=== PATIENT | female | born 1970 ===

== ENCOUNTER 2025-04-03 22:13 | Emergency (ER) | payer OTHER, SELFPAY ==
--- NOTE | ~2025-04-03 | CT_ITS ---
CLINICAL HISTORY: R flank pain, fever CT abdomen and pelvis without contrast Comparison: None provided Findings: There is mild dependent atelectasis. The liver, gallbladder, pancreas, spleen, adrenal glands, and kidneys are unremarkable. There is no urolithiasis or hydronephrosis. The appendix is normal. There is a moderate amount of stool throughout the colon. The remainder of the gastrointestinal tract is unremarkable. There are no enlarged lymph nodes. The aorta is normal in diameter. Uterus and adnexa are grossly unremarkable. The bladder is unremarkable. There is no fracture or suspicious lytic or sclerotic lesion. There is mild L5-S1 degenerative disc disease. IMPRESSION: No acute abnormality in the abdomen or pelvis. This document has been electronically signed by: Abhi Nieves MD on 04/04/2025 02:12:03
[2025-04-03 22:15] VITALS: BP 135/84; PULSE 116; RESP 15; TEMP 37.7; O2SAT 100; BMI 23.2
[2025-04-03 22:28] LABS: MANUAL DIFF FLAG NO
[2025-04-03 22:29] LABS: Hematocrit 35.4 % (37.0-47.0); Hemoglobin 12.0 g/dl (12.0-16.0); Imm Gran Abs Auto 0.05 X10*3/uL (0.00-0.03); Imm Gran Pct Auto 0.4 % (0.0-0.4); Lymphocytes Absolute Auto 1.2 X10*3/uL (1.2-4.9); Mean Corpuscular HGB Conc 33.9 g/dl (31.0-35.0); Mean Corpuscular Hemoglobin 27.8 pg (27.0-33.0); Mean Corpuscular Volume 82.1 fL (80.0-98.0); NRBC Abs Auto 0.000 X10*3/uL (0.0-0.012); NRBC Pct Auto 0.0 /100WBC (0.0-0.2); Platelet Count 269 X10*3/uL (160-400); Red Blood Count 4.31 X10*6/uL (4.20-5.50); White Blood Count 13.5 X10*3/uL (4.8-10.8)
[2025-04-03 22:39] LABS: Appearance Urine Clear; Glucose Urine UA Negative (Negative); PH 7.0 (5.0-9.0); Specific Gravity - Urine <= 1.005 (1.005-1.025); UMIC TRIGGER UACC YES
[2025-04-03 22:44] LABS: Alanine Aminotransferase 30 U/L (0-31); Albumin Level 4.5 g/dL (3.5-5.0); Alkaline Phosphatase 113 U/L (39-117); Anion Gap 11 (12-20); Aspartate Amino Transferase 36 U/L (5-31); Blood Urea Nitrogen 12 mg/dL (9-16); Calcium 9.2 mg/dL (8.4-10.2); Carbon Dioxide 23 mmol/L (22-29); Chloride 107 mmol/L (96-108); Creatinine Clr Calc Pharmacy 77.4; Estimated Glomerular Filt Rate > 60; Lipase 33 U/L (8-78); Potassium 3.9 mmol/L (3.3-5.1); Sodium 137 mmol/L (135-145); Total Protein 7.7 g/dL (6.5-8.0)
[2025-04-03 22:51] LABS: UACC Culture Trigger YES
--- NOTE | 2025-04-04 00:42 | ED_ITS ---
HPI - Female Genitourinary General Chief complaint: Urogenital-Female Stated complaint: Fever Time Seen by Provider: 04/04/25 00:42 Source: patient Mode of arrival: ambulatory Limitations: no limitations History of Present Illness ED Provider: Dr. Anna Paniagua HPI Narrative: 54-year-old female history of frequent urinary tract infections presenting with fever, suprapubic abdominal pain and dysuria ongoing for the last 3 days or so. Patient admits she developed some dysuria and suprapubic pain days ago. Tried to call her urologist but did not hear back. Called her primary care doctor who started her on Macrobid yesterday and Pyridium for pain. Admits the Pyridium has helped her pain however, today she developed a fever and pain radiating into her right flank. No hematuria. No bowel changes. Describes nausea without vomiting. Denies upper abdominal pain. No vaginal bleeding or discharge. No known sick contacts, cough or cold-type symptoms, chest pain or difficulty breathing. Admits that she has been on multiple different antibiotics for her UTIs. She has had 3 doses of Macrobid so far. Related Data Previous Rx's ?Medication ?Instructions ?Recorded cefuroxime axetil 500 mg tablet 500 mg PO Q12H 7 days #14 tabs 04/04/25 ondansetron HCl 4 mg tablet 4 mg PO Q8H #10 tabs 04/04 Allergies Allergy/AdvReac Type Severity Reaction Status Date / Time No Known Allergies Allergy Verified 04/03/25 22:18 Review of Systems 2 Review of Systems: Yes all other systems are reviewed and are negative (As per HPI) COUNTS INCLUDE 234 BEDS AT THE [facility] Social History Social History Alcohol intake: current Alcohol intake frequency: holidays/special occasions only Smoked in Last 30 Days: No Use of substances other than those prescribed or required for medical reasons: No Advance Directives: Yes Advance Directives Information Provided: Yes Advance Directives on File: No Do you have a plan to hurt others: No Plan Patient : No Physical Exam 2 Vital Signs: Vital Signs: Last Vital Signs Temp 99.0 F 04/04/25 01:36 Pulse 94 04/04/25 02:34 Resp 18 04/04/25 02:34 BP 103/59 L 04/04/25 02:34 Pulse Ox 96 04/04/25 02:34 O2 Del Method Room Air 04/04/25 02:34 BMI result Body Mass Index 23.2 GENERAL: Ill-Appearing, appears uncomfortable. SKIN: Normal skin color for ethnicity, warm, dry, no rashes noted. HEENT: Normocephalic, atraumatic, no stridor, dry mucous membranes, dentition intact, EOMI, PERRLA. NECK: Soft, supple, full ROM, midline structures nontender, no step-offs, no deformities, no lymphadenopathy. CHEST: Heart regular tachycardia, no murmurs, symmetric chest rise and fall. PULMONARY: Clear to auscultation bilaterally, diminished at the bases, no labored breathing, no wheezes/rhales/rhonchi. ABDOMINAL: Soft, nondistended, suprapubic tenderness to palpation, right flank tenderness to percussion with voluntary guarding, no rebound tenderness, positive bowel sounds in all quadrants. : Deferred. MUSCULOSKELETAL: Normal tone, full range of motion, no deformities, no peripheral edema. NEURO: Alert and oriented x3, CN II through XII intact, equal strength and sensation bilateral upper and lower extremities, no focal neurologic deficits. PSYCHIATRIC: Flat affect, fluid speech, good eye contact and appropriate demeanor. Medications Administered Discontinued Medications Generic Name Dose Route Start Last Admin Trade Name Freq PRN Reason Stop Dose Admin Acetaminophen 975 mg 04/04/25 01:55 04/04/25 02:29 Acetaminophen 325 Mg Tablet PO 04/04/25 01:56 975 mg ONCE ONE Administration Cefuroxime Axetil 500 mg 04/04/25 02:15 04/04/25 02:29 Cefuroxime Axetil 500 Mg Tablet PO 04/04/25 02:16 500 mg ONCE ONE Administration Ondansetron HCl 4 mg 04/04/25 02:15 04/04/25 02:30 Ondansetron Odt 4 Mg Tab.Rapdis TRANSLINGU 04/04/25 02:16 4 mg ONCE ONE Administration Medical Decision Making Medical Decision Making MDM Narrative: Patient presented today with a chief complaint of flank pain. Differential diagnosis is certainly broad and includes but is not limited to kidney stone, infection such as pyelonephritis, vascular pathology, among many others. 1:45 a.m. Patient is on the edge of the fever with a temperature of 99.9?. Medicated with Tylenol, Zofran. Her blood pressure runs low as she is very small (4 ft 11). White blood cell count is only mildly elevated at 13.5. No bandemia. No bacteria on urinalysis. She has been on Macrobid for 3 doses without any improvement in symptoms. We will treat with cefuroxime. Awaiting CT result. 2:[address] does not show evidence of kidney stone or significant stranding of the kidney. Low suspicion for pyelonephritis at this point. We will switch her antibiotic to cefuroxime 500 mg b.i.d. for the next 7 days. We will have her follow-up with primary care and Urology as an outpatient. She is nontoxic in appearance, feeling better after medications. Using shared decision making, plan for discharge home to follow-up with primary care and/or specialist. Patient understands and agrees with plan for discharge. Discharged home in stable condition. Differential Diagnosis Differential Diagnoses: The differential diagnosis associated with the presentation includes (As above) Admission/Observation Consideration of admission/observation: Escalation of care including admission/observation considered Lab Data MDM Lab Attestation statement: I reviewed the patient's lab results. 04/03/25 22:25 04/03/25 22:25 Labs: Lab Results 04/03/25 04/03/25 Range/Units 22:25 22:29 WBC 13.5 H (4.8-10.8) X10*3/uL RBC 4.31 (4.20-5.50) X10*6/uL Hgb 12.0 (12.0-16.0) g/dl Hct 35.4 L (37.0-47.0) % MCV 82.1 (80.0-98.0) fL MCH 27.8 (27.0-33.0) pg MCHC 33.9 (31.0-35.0) g/dl RDW 15.2 (11.0-16.0) % Plt Count 269 (160-400) X10*3/uL MPV 10.0 (9.4-12.3) fL Immature Gran % (Auto) 0.4 (0.0-0.4) % Neut % (Auto) 84.8 H (45-73) % Lymph % (Auto) 9.0 L (20-40) % [place] % (Auto) 4.2 (2-11) % Eos % (Auto) 1.5 (0-4) % Baso % (Auto) 0.1 (0-2) % Lymph # (Auto) 1.2 (1.2-4.9) X10*3/uL [place] # (Auto) 0.6 (0.1-1.2) X10*3/uL Eos # (Auto) 0.2 (0.0-0.4) X10*3/uL Baso # (Auto) 0.0 (0.0-0.2) X10*3/uL Abs Immat Gran (auto) 0.05 H (0.00-0.03) X10*3/uL Absolute Neuts (auto) 11.4 H (2.0-8.3) x10*3/uL Absolute Nucleated RBC 0.000 (0.0-0.012) X10*3/uL Nucleated RBC % (auto) 0.0 (0.0-0.2) /100WBC Sodium 137 (135-145) mmol/L Potassium 3.9 (3.3-5.1) mmol/L Chloride 107 (96-108) mmol/L Carbon Dioxide 23 (22-29) mmol/L Anion Gap 11 L (12-20) BUN 12 (9-16) mg/dL Creatinine 0.62 (0.5-1.4) mg/dL Estim Creat Clear Calc 77.4 Estimated GFR > 60 Random Glucose 111 (60-115) mg/dL Calcium 9.2 (8.4-10.2) mg/dL Total Bilirubin 0.6 (0.0-1.0) mg/dL AST 36 H (5-31) U/L ALT 30 (0-31) U/L Alkaline Phosphatase 113 (39-117) U/L Total Protein 7.7 (6.5-8.0) g/dL Albumin 4.5 (3.5-5.0) g/dL Lipase 33 (8-78) U/L Urine Color Dark Yellow Urine Appearance Clear Urine pH 7.0 (5.0-9.0) Ur Specific [place] <= 1.005 (1.005-1.025) Urine Protein Negative (Neg-Trace) mg/dL Urine Glucose (UA) Negative (Negative) mg/dL Urine Ketones Negative (Negative) mg/dL Urine Blood Moderate (2+) H (Negative) Urine Nitrite Positive H (Negative) Ur Leukocyte Esterase Negative (Negative) Urine RBC 0-2 (0-2) /HPF Urine WBC 0-5 (0-5) /HPF Ur Squamous Epith Cells 0-2 (0-2) /HPF Urine Bacteria None Seen (None Seen) Hyaline Casts 0-2 (0-2) /LPF Radiology Impression Discussion of test interpretation with radiology: I have reviewed the radiologist's reading. Radiologist Impression: CT abdomen and pelvis without contrast Comparison: None provided Findings: There is mild dependent atelectasis. The liver, gallbladder, pancreas, spleen, adrenal glands, and kidneys are unremarkable. There is no urolithiasis or hydronephrosis. The appendix is normal. There is a moderate amount of stool throughout the colon. The remainder of the gastrointestinal tract is unremarkable. There are no enlarged lymph nodes. The aorta is normal in diameter. Uterus and adnexa are grossly unremarkable. The bladder is unremarkable. There is no fracture or suspicious lytic or sclerotic lesion. There is mild L5-S1 degenerative disc disease. IMPRESSION: No acute abnormality in the abdomen or pelvis. This document has been electronically signed by: Abhi Nieves MD on 04/04/2025 02:12:03 Prescription Management I considered prescription management with: Antibiotic Discharge Plan Discharge Clinical Impression: Urinary tract infection Patient Disposition: Home, Self-Care Instructions: Urinary Tract Infection in Women (ED) Additional Instructions: Return to the emergency department with any new or worsening symptoms including: Continued fevers and abdominal pain despite antibiotics, vomiting despite Zofran, inability to tolerate food or drink, any new symptom that concerns you. Call 911 with any medical emergency. Prescriptions: New cefuroxime axetil 500 mg tablet 500 mg PO Q12H 7 Days Qty: 14 0RF ondansetron HCl 4 mg tablet 4 mg PO Q8H Qty: 10 0RF Print Language: Turkmen
[2025-04-04 01:36] VITALS: BP 98/48; PULSE 95; RESP 16; TEMP 37.2; O2SAT 96
[2025-04-04 02:34] VITALS: BP 103/59; PULSE 94; RESP 18; O2SAT 96
[2025-04-04 03:51] VITALS: BP 105/49; PULSE 84; RESP 16; TEMP 37.1; O2SAT 97
--- NOTE | 2025-04-04 03:54 | PC.NURSE ---
Pt given gingerale and saltine crackers. Pt able to tolerate without N/V.
== END 2025-04-04 03:54 | disposition home or self-care (01) ==
PROVIDERS: Emergency Provider Emergency Medicine; PCP Family Medicine
DX: N39.0 Urinary tract infection, site not specified (principal); R50.9 Fever, unspecified; R30.0 Dysuria; R10.11 Right upper quadrant pain; Z87.440 Personal history of urinary (tract) infections; Z79.899 Other long term (current) drug therapy
CPT/HCPCS: 36415; 74176; 80053; 81001; 83690; 85025; 87086; 99284

== ENCOUNTER → 2025-04-04 00:46 | Outpatient (BNV) | payer OTHER, SELFPAY | PROVIDERS: Emergency Provider Emergency Medicine; PCP Family Medicine; Visit Provider Radiology Diagnostic Radiology | DX: J98.11 Atelectasis (principal) | CPT/HCPCS: 74176 ==